=== PATIENT | female | born 1950 | race Caucasian/White ===

== ENCOUNTER → 2020-01-19 | Outpatient (CLI) | payer MEDICARE, MEDICAID | LOC: CARD 09:00 | PROVIDERS: ATTEND Internal Medicine Cardiovascular Disease | DX: I48.0 Paroxysmal atrial fibrillation (principal); E66.8 Other obesity; Z95.2 Presence of prosthetic heart valve | CPT/HCPCS: 93306 ==

== ENCOUNTER → 2020-02-29 | Outpatient (CLI) | payer MEDICARE, MEDICAID ==
--- NOTE | 2020-02-29 11:17 | Diagnostic Imaging Report ---
PA and lateral chest at 10:09. Indication: Dyspnea There are no prior studies available for comparison. The heart is mildly enlarged and there are sternotomy wires and surgical clips evident. There are crowded bronchovascular markings in both infrahilar regions. I suspect these findings are chronic in nature. If previous studies are available they would be helpful for comparison. There is no evidence for failure, pneumonia or for pleural effusion. There is slight blunting of both costophrenic angles. This may be secondary to pleural thickening as opposed to small effusions. Again if previous exams are available, it would be helpful for comparison. The mediastinum is not widened. The osseous structures are intact. There is a loop recorder device in the soft tissues overlying the anterior thorax on the left. Impression: 1. There is cardiomegaly and evidence of prior cardiac surgery. The crowded bronchovascular markings in the infrahilar regions are most likely chronic in nature. There is no acute abnormality identified. 2. If previous studies are available they would be helpful for comparison. Dictated by: Dictated on workstation # [id number]
== END ==
LOC: RAD 09:53
DX: I51.7 Cardiomegaly (principal)
CPT/HCPCS: 71046

== ENCOUNTER → 2020-04-04 | Outpatient (CLI) | payer MEDICARE, MEDICAID ==
[2020-04-04 08:11] LABS: CREATININE SERUM 1.49 MG/DL (0.60-1.30)
--- NOTE | 2020-04-04 08:40 | Diagnostic Imaging Report ---
EXAMINATION: CT Chest without contrast. TECHNIQUE: Multiple contiguous axial images were obtained through the chest without the use of intravenous contrast. All CT scans use one or more of the following dose optimizing techniques: automated exposure control, MA and/or KvP adjustment based on a patient size and exam type, or iterative reconstruction. HISTORY: Shortness of breath. COMPARISON: None available. FINDINGS: There is no edema or pneumonia. No pleural effusion. No pneumothorax. No suspicious nodules. There is mild paraseptal emphysema. There is minimal atelectasis in the right lower lobe. There is no axillary or supraclavicular lymphadenopathy. There are a few mildly enlarged mediastinal lymph nodes measuring up to 12 mm in the right lower paratracheal space. A loop recorder is present. There has been a mitral valve repair. Heart size is normal. There are mild coronary artery calcifications. No pericardial effusion. Aorta is normal in caliber. Limited views of the upper abdomen are unremarkable. There are no suspicious osseus lesions. IMPRESSION: 1. Mild emphysema. 2. Indeterminate mildly enlarged mediastinal lymph nodes are likely reactive to the emphysema, three month follow-up is recommended to ensure stability. Dictated by: Dictated on workstation # [id number]
== END ==
LOC: RAD 08:45
PROVIDERS: ATTEND Nurse Practitioner Family
DX: Z03.89 Encounter for observation for other suspected diseases and conditions ruled out (principal); J43.9 Emphysema, unspecified; M79.609 Pain in unspecified limb; M79.89 Other specified soft tissue disorders; R59.0 Localized enlarged lymph nodes
CPT/HCPCS: 36415; 71250; 82565; 84520

== ENCOUNTER 2020-06-06 10:18 | Outpatient (CLI) | payer MEDICARE, MEDICAID | END 2020-06-06 12:26 | disposition home or self-care (01) | LOC: SLEEP 10:18 | PROVIDERS: ATTEND Nurse Practitioner Family | DX: G47.30 Sleep apnea, unspecified (principal); G47.50 Parasomnia, unspecified; G47.10 Hypersomnia, unspecified; J44.9 Chronic obstructive pulmonary disease, unspecified; R91.8 Other nonspecific abnormal finding of lung field; R59.0 Localized enlarged lymph nodes | CPT/HCPCS: G0399 ==

== ENCOUNTER → 2020-06-06 | Outpatient (CLI) | payer MEDICARE, MEDICAID ==
[~2020-06-06] MED LIST: RT-ALBUTEROL SULF 2.5 MG/3 ML PRE-MIX VIAL INH ONE
== END ==
LOC: RT 10:16
PROVIDERS: ATTEND Nurse Practitioner Family
DX: J44.9 Chronic obstructive pulmonary disease, unspecified (principal)
CPT/HCPCS: 94060; 94726; 94729

== ENCOUNTER → 2020-07-18 | Outpatient (CLI) | payer MEDICARE, MEDICAID ==
[2020-07-18 09:44] LABS: CREATININE SERUM 1.28 MG/DL (0.60-1.30)
--- NOTE | 2020-07-18 10:31 | Diagnostic Imaging Report ---
PROCEDURE: CT chest without contrast. TECHNIQUE: Multiple contiguous axial images were obtained through the chest without the use of intravenous contrast. Auto Exposure Controls were utilized during the CT exam to meet ALARA standards for radiation dose reduction. INDICATION: Dyspnea, emphysema The previous CT chest exam performed on 04/04/2020 noted indeterminate mildly enlarged mediastinal lymph nodes. This included 12 mm node in the right paratracheal region. By my measurements the right paratracheal nodes seen on the prior study was approximately 20 mm (series 2 image 46). On this exam however that node has decreased in size and now measures only 16 mm. The other mediastinal nodes seen previously are also somewhat less conspicuous on this exam. Prior study also revealed mild emphysematous changes involving both lungs. Those findings are again evident and no different. There is no sign of failure, pneumonia or pleural effusion to indicate an acute abnormality. The heart is stable in size when compared to the prior study. Extensive coronary artery calcifications are again seen as are the sternotomy wires and surgical clips noted on the prior exam. The aorta is not abnormally dilated. The thyroid gland was partially obscured by streak artifact but does not seem to have changed significantly since the prior study. The sections through the upper abdomen failed to show any evidence for an acute abnormality. The bone windows are unremarkable for fracture or for destructive lesion. There is no obvious breast mass. The loop recorder device in the left breast seen previously is again evident. IMPRESSION: 1. The appearance the chest has improved since the prior exam as the mediastinal nodes seen previously have diminished in size. 2. There are mild emphysematous changes involving both lungs but there is no sign of an acute cardiopulmonary abnormality. 3. There is coronary artery disease and evidence of prior cardiac surgery. Dictated by: Dictated on workstation # [id number]
== END ==
LOC: RAD 10:15
PROVIDERS: ATTEND Internal Medicine Critical Care Medicine
DX: J43.9 Emphysema, unspecified (principal); I25.10 Atherosclerotic heart disease of native coronary artery without angina pectoris; R91.8 Other nonspecific abnormal finding of lung field
CPT/HCPCS: 36415; 71250; 82565; 84520

== ENCOUNTER → 2020-10-20 | Outpatient (CLI) | payer MEDICARE, MEDICAID ==
[2020-10-20 11:08] LABS: ALBUMIN 4.3 GM/DL (3.2-4.5); CALCIUM 9.7 MG/DL (8.5-10.1); CREATININE SERUM 1.15 MG/DL (0.60-1.30); PHOSPHORUS 3.1 MG/DL (2.3-4.7); POTASSIUM 3.8 MMOL/L (3.6-5.0)
== END ==
LOC: LAB 10:09
PROVIDERS: ATTEND Internal Medicine Nephrology
DX: N18.32 Chronic kidney disease, stage 3b (principal)
CPT/HCPCS: 36415; 80069

== ENCOUNTER → 2020-11-04 | Outpatient (CLI) | payer MEDICARE, MEDICAID ==
[2020-11-04 13:46] LABS: ALBUMIN 4.3 GM/DL (3.2-4.5)
[2020-11-04 13:48] LABS: CALCIUM 9.6 MG/DL (8.5-10.1)
[2020-11-04 13:52] LABS: CREATININE SERUM 1.23 MG/DL (0.60-1.30); PHOSPHORUS 3.2 MG/DL (2.3-4.7)
== END ==
LOC: LAB 12:54
PROVIDERS: ATTEND Internal Medicine Nephrology
DX: N18.32 Chronic kidney disease, stage 3b (principal)
CPT/HCPCS: 36415; 80069

== ENCOUNTER → 2020-12-27 | Outpatient (CLI) | payer MEDICARE, MEDICAID ==
--- NOTE | 2020-12-27 10:41 | Diagnostic Imaging Report ---
INDICATION: Chronic renal disease, stage III TECHNIQUE: Multiple real-time grayscale sonographic images were obtained of the kidneys. CORRELATION: None FINDINGS: RIGHT KIDNEY: 9.9 x 4.3 x 6.4 cm. There is a rounded, simple appearing cyst right kidney, 3.5 x 3.7 x 2.6 cm. Renal parenchyma is otherwise unremarkable. No hydronephrosis. LEFT KIDNEY: 9.3 x 4.8 x 4.5 cm. There is normal echotexture of the left renal parenchyma. No definitive calcification or hydronephrosis. URINARY BLADDER: The partially distended bladder has an unremarkable appearance. The left ureteral jet visualized. Right ureteral jet not demonstrated. IMPRESSION: 1. Simple appearing right renal cyst. Otherwise generally unremarkable appearing renal sonogram. Dictated by: Dictated on workstation # [id number]
== END ==
LOC: RAD 08:36
PROVIDERS: ATTEND Internal Medicine Nephrology
DX: N28.1 Cyst of kidney, acquired (principal); N18.32 Chronic kidney disease, stage 3b; I12.9 Hypertensive chronic kidney disease with stage 1 through stage 4 chronic kidney disease, or unspecified chronic kidney disease; E79.0 Hyperuricemia without signs of inflammatory arthritis and tophaceous disease; R60.0 Localized edema
CPT/HCPCS: 76770

== ENCOUNTER → 2020-12-27 | Outpatient (CLI) | payer MEDICARE, MEDICAID ==
--- NOTE | 2020-12-27 14:00 | Diagnostic Imaging Report ---
INDICATION: Postmenopausal screening COMPARISON: Baseline FINDINGS: AP Spine L1-L4: [BMD (g/cm2): 1.077] [T-Score: -1.0] [Z-Score: 0.2] [BMD Previous: NA] [BMD % Change: NA] LT Hip Neck: [BMD (g/cm2): 0.699] [T-Score: -2.4] [Z-Score: -1.1] LT Hip Total: [BMD (g/cm2):0.769] [T-Score:-1.9] [Z-Score: -0.8] [BMD Previous: NA] [BMD % Change: NA] RT Hip Neck: [BMD (g/cm2):0.838] [T-Score:-1.4] [Z-Score:-0.1] RT Hip Total: [BMD (g/cm2):0.834] [T-score:-1.4] [Z-Score:-0.3] [BMD Previous:NA] [BMD % Change:NA] *Indicates significant change from prior examination based on 95% confidence level. World Health Organization criteria for BMD interpretation classify patients as Normal (T-score at or above -1.0), Osteopenic (T-score between -1.0 and -2.5) or Osteoporotic (T-score at or below -2.5). LIMITATIONS AND MODIFICATION: None. FRACTURE RISK (FRAX SCORE): The ten year probability of (%): Major Osteoporotic Fracture: [13.8] Hip Fracture: [3.2] IMPRESSION: 1. Osteopenia (Low bone mass). 2. Baseline examination. 3. See below National Osteoporosis Foundation guidelines on when to potentially initiate pharmacologic therapy. Based on the National Osteoporosis Foundation Guidelines, pharmacologic treatment should be initiated in any of the following, unless clinical conditions suggest otherwise: * Any patient with prior fragility fracture of the hip or vertebrae. A spine fracture indicates 5X risk for subsequent spine fracture and 2X risk for subsequent hip fracture. * Osteoporosis (T-score <-2.5). * Postmenopausal women and men age 50 and older with low bone mass/osteopenia (T-score between -1.0 and -2.5) by DXA and 10-year major osteoporotic fracture greater than 20% or a 10-year probability of hip fracture greater than 3%. These fracture risks are supplied above in the FRAX score, if applicable. * Clinician judgement and/or patient preferences may indicate treatment for people with 10-year fracture probabilities above or below these levels. Dictated by: Dictated on workstation # [id number]
== END ==
LOC: RAD 08:38
PROVIDERS: ATTEND Nurse Practitioner
DX: Z13.820 Encounter for screening for osteoporosis (principal); Z12.31 Encounter for screening mammogram for malignant neoplasm of breast; M85.80 Other specified disorders of bone density and structure, unspecified site; Z78.0 Asymptomatic menopausal state
CPT/HCPCS: 77063; 77067; 77080

== ENCOUNTER → 2021-04-05 | Outpatient (CLI) | payer OTHER ==
[2021-04-05 11:29] LABS: BASOPHILS % (AUTO) 1 % (0-10); EOSINOPHILS # (AUTO) 0.1 10^3/uL (0.0-0.3); EOSINOPHILS % (AUTO) 1 % (0-10); HEMATOCRIT 46 % (35-52); HEMOGLOBIN 14.4 g/dL (11.5-16.0); LYMPHOCYTES # (AUTO) 1.1 10^3/uL (1.0-4.0); LYMPHOCYTES % (AUTO) 17 % (12-44); MEAN CORPUSCULAR HEMOGLOBIN 27 pg (25-34); MEAN CORPUSCULAR HGB CONC 32 g/dL (32-36); MEAN CORPUSCULAR VOLUME 85 fL (80-99); MEAN PLATELET VOLUME 10.3 fL (9.0-12.2); MONOCYTES # (AUTO) 0.3 10^3/uL (0.0-1.0); MONOCYTES % (AUTO) 4 % (0-12); NEUTROPHILS # (AUTO) 5.1 10^3/uL (1.8-7.8); NEUTROPHILS % (AUTO) 77 % (42-75); PLATELET COUNT 151 10^3/uL (130-400); WHITE BLOOD COUNT 6.6 10^3/uL (4.3-11.0)
[2021-04-05 11:49] LABS: ALBUMIN 4.1 GM/DL (3.2-4.5); CALCIUM 9.4 MG/DL (8.5-10.1); CREATININE SERUM 1.15 MG/DL (0.60-1.30); PHOSPHORUS 3.3 MG/DL (2.3-4.7); URIC ACID 9.3 MG/DL (2.6-7.2)
[2021-04-05 11:50] LABS: URINE CREATININE FOR RATIO 12 MG/DL (30-125); URINE PROTEIN FOR RATIO ONLY < 6 MG/DL (6-12)
== END ==
LOC: LAB 10:48 → MERGE 10:48
PROVIDERS: ATTEND Internal Medicine Nephrology
DX: I12.9 Hypertensive chronic kidney disease with stage 1 through stage 4 chronic kidney disease, or unspecified chronic kidney disease (principal); N18.32 Chronic kidney disease, stage 3b; E79.0 Hyperuricemia without signs of inflammatory arthritis and tophaceous disease; R60.0 Localized edema
CPT/HCPCS: 36415; 80069; 82306; 82570; 83970; 84156; 84550; 85025

== ENCOUNTER → 2021-08-08 | Outpatient (CLI) | payer MEDICARE, MEDICAID ==
--- NOTE | 2021-08-08 14:49 | Diagnostic Imaging Report ---
TIME OF EXAM: 08/08/2021 1:28 PM REASON FOR EXAM: Lung cancer screening. [id number] smoking history. COMPARISON: 07/18/2020. TECHNIQUE: Low Dose CT helical images obtained through the chest. Sagittal and coronal reformats were obtained and reviewed. Dose reduction techniques were utilized. CTDI vol: 2.22 mGy FINDINGS: Nodules: -- A) 5] mm, indeterminate noncalcified solid right middle lobe nodule (image 116 series 2) Lungs: Lung volumes are normal. A small amount of paraseptal emphysema is seen in the lung apices. No significant fibrosis is present. There is no appreciable bronchiectasis. No pulmonary mass or consolidation is present. No central endoluminal airway lesion is seen. 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 Small amount of coronary calcifications are present. Aortic atherosclerosis is present without aneurysm. No pericardial effusion is present. No axillary, supraclavicular, mediastinal, internal mammary, or hilar adenopathy is present by CT size criteria. Normal size and attenuation of the visualized thyroid gland. Pleura: Normal pleural spaces. No effusion or pneumothorax. No pleural nodularity or mass. Abdomen: Included views of the upper abdomen demonstrate no acute abnormality. Bones and soft tissues: Regional skeletal and soft tissue structures are age-appropriate. IMPRESSION: 1. Nodule in the right middle lobe measuring 5 mm, stable since the prior exam. No suspicious pulmonary nodules are seen. Recommend continued surveillance with low-dose chest CT in 12 months. 2. Paraseptal emphysema in the lung apices. 3. Cardiomegaly. Result code: Category 2: Benign Appearance or Behavior Follow up: Continue annual screening with LDCT in 12 months Dictated by: Dictated on workstation # [id number]
== END ==
LOC: RAD 12:59
PROVIDERS: ATTEND Nurse Practitioner Family
DX: Z12.2 Encounter for screening for malignant neoplasm of respiratory organs (principal); R91.1 Solitary pulmonary nodule; I51.7 Cardiomegaly; J43.9 Emphysema, unspecified; Z87.891 Personal history of nicotine dependence
CPT/HCPCS: 71271

== ENCOUNTER → 2022-03-16 | Outpatient (CLI) | payer MEDICARE, MEDICAID ==
[2022-03-16 15:16] LABS: CALCIUM 9.4 MG/DL (8.5-10.1)
[2022-03-16 15:21] LABS: CREATININE SERUM 1.44 MG/DL (0.60-1.30)
== END ==
LOC: LAB 14:34
PROVIDERS: ATTEND Nurse Practitioner Family
DX: I48.0 Paroxysmal atrial fibrillation (principal)
CPT/HCPCS: 36415; 80048

== ENCOUNTER → 2022-09-28 | Outpatient (CLI) | payer MEDICARE, MEDICAID ==
[2022-09-28 14:57] LABS: BASOPHILS # (AUTO) 0.1 10^3/uL (0.0-0.1); BASOPHILS % (AUTO) 1 % (0-10); EOSINOPHILS # (AUTO) 0.1 10^3/uL (0.0-0.3); EOSINOPHILS % (AUTO) 1 % (0-10); HEMATOCRIT 48 % (35-52); HEMOGLOBIN 15.3 g/dL (11.5-16.0); LYMPHOCYTES # (AUTO) 1.2 10^3/uL (1.0-4.0); LYMPHOCYTES % (AUTO) 18 % (12-44); MEAN CORPUSCULAR HEMOGLOBIN 28 pg (25-34); MEAN CORPUSCULAR HGB CONC 32 g/dL (32-36); MEAN CORPUSCULAR VOLUME 88 fL (80-99); MEAN PLATELET VOLUME 12.3 fL (9.0-12.2); MONOCYTES # (AUTO) 0.3 10^3/uL (0.0-1.0); MONOCYTES % (AUTO) 5 % (0-12); NEUTROPHILS # (AUTO) 5.1 10^3/uL (1.8-7.8); NEUTROPHILS % (AUTO) 75 % (42-75); PLATELET COUNT 186 10^3/uL (130-400); WHITE BLOOD COUNT 6.8 10^3/uL (4.3-11.0)
[2022-09-28 15:08] LABS: ALBUMIN 4.4 GM/DL (3.2-4.5); CALCIUM 9.9 MG/DL (8.5-10.1); CREATININE SERUM 1.34 MG/DL (0.60-1.30); PHOSPHORUS 4.2 MG/DL (2.3-4.7); POTASSIUM 3.8 MMOL/L (3.6-5.0)
[2022-09-28 15:09] LABS: URINE CREATININE FOR RATIO 37 MG/DL (30-125); URINE PROTEIN FOR RATIO ONLY < 6 MG/DL (6-12)
== END ==
LOC: LAB 14:10
PROVIDERS: ATTEND Internal Medicine Nephrology
DX: I12.9 Hypertensive chronic kidney disease with stage 1 through stage 4 chronic kidney disease, or unspecified chronic kidney disease (principal); N18.31 Chronic kidney disease, stage 3a; E21.2 Other hyperparathyroidism; E55.9 Vitamin D deficiency, unspecified; E79.0 Hyperuricemia without signs of inflammatory arthritis and tophaceous disease; R60.0 Localized edema
CPT/HCPCS: 36415; 80069; 82306; 82570; 83970; 84156; 85025; 85027

== ENCOUNTER → 2022-12-26 | Outpatient (CLI) | payer MEDICARE ==
[2022-12-26 10:02] LABS: HEMOGLOBIN 14.9 g/dL (11.5-16.0)
[2022-12-26 10:04] LABS: BASOPHILS % (AUTO) 1 % (0-10); EOSINOPHILS # (AUTO) 0.1 10^3/uL (0.0-0.3); EOSINOPHILS % (AUTO) 1 % (0-10); HEMATOCRIT 47 % (35-52); LYMPHOCYTES % (AUTO) 16 % (12-44); MEAN CORPUSCULAR HEMOGLOBIN 28 pg (25-34); MEAN CORPUSCULAR HGB CONC 32 g/dL (32-36); MEAN CORPUSCULAR VOLUME 88 fL (80-99); MEAN PLATELET VOLUME 11.9 fL (9.0-12.2); MONOCYTES # (AUTO) 0.3 10^3/uL (0.0-1.0); MONOCYTES % (AUTO) 5 % (0-12); NEUTROPHILS # (AUTO) 4.4 10^3/uL (1.8-7.8); NEUTROPHILS % (AUTO) 76 % (42-75); PLATELET COUNT 130 10^3/uL (130-400); WHITE BLOOD COUNT 5.8 10^3/uL (4.3-11.0)
[2022-12-26 10:17] LABS: ALBUMIN 4.2 GM/DL (3.2-4.5); POTASSIUM 3.9 MMOL/L (3.6-5.0)
[2022-12-26 10:18] LABS: CALCIUM 9.2 MG/DL (8.5-10.1)
[2022-12-26 10:19] LABS: TOTAL PROTEIN 6.8 GM/DL (6.4-8.2)
[2022-12-26 10:21] LABS: BILIRUBIN,TOTAL 1.2 MG/DL (0.1-1.0)
[2022-12-26 10:23] LABS: CREATININE SERUM 1.32 MG/DL (0.60-1.30)
[2022-12-26 10:26] LABS: MAGNESIUM 2.3 MG/DL (1.6-2.4)
== END ==
LOC: LAB 09:43
PROVIDERS: ATTEND Internal Medicine Cardiovascular Disease
DX: I70.203 Unspecified atherosclerosis of native arteries of extremities, bilateral legs (principal); I10 Essential (primary) hypertension; I48.0 Paroxysmal atrial fibrillation; Z95.818 Presence of other cardiac implants and grafts; Z95.4 Presence of other heart-valve replacement
CPT/HCPCS: 36415; 80053; 80061; 83735; 84443; 85025

== ENCOUNTER → 2023-01-01 | Outpatient (CLI) | payer MEDICARE | LOC: CARD 14:08 | PROVIDERS: ATTEND Internal Medicine Cardiovascular Disease | DX: Z95.4 Presence of other heart-valve replacement (principal) | CPT/HCPCS: 93306 ==